=== PATIENT | female | born 1950 | race Asian ===

== ENCOUNTER → 2016-10-23 | Outpatient (CLI) | payer MEDICARE ==
[~2016-10-23] VITALS: Ht 152.4 cm; Wt 51.1 kg
[~2016-10-23] MED LIST: ADV250 IH; ASPI-556 PO; ATOR20TA86 PO; ETHA400T8 PO; ISOS30TA6 PO; LOSA50TA37 PO; METF850T2 PO; METO25 PO; NITR.4 SL; RIFA300 PO
[2016-10-23 12:32] VITALS: BP 171/82
== END | disposition home or self-care (01) ==
LOC: SRCNTR 12:10
PROVIDERS: ATTEND Internal Medicine
DX: I10 Essential (primary) hypertension (principal); E11.9 Type 2 diabetes mellitus without complications; A15.0 Tuberculosis of lung
CPT/HCPCS: G0463

== ENCOUNTER → 2016-11-20 | Outpatient (CLI) | payer BC, MEDICARE ==
[~2016-11-20] VITALS: Ht 152.4 cm; Wt 52.5 kg
[~2016-11-20] MED LIST changes: -ADV250 IH; -ISOS30TA6 PO
[2016-11-20 13:47] VITALS: BP 141/67
== END | disposition home or self-care (01) ==
LOC: SRCNTR 12:26
PROVIDERS: ATTEND Internal Medicine
DX: I10 Essential (primary) hypertension (principal); E11.9 Type 2 diabetes mellitus without complications; A15.0 Tuberculosis of lung; M10.9 Gout, unspecified
CPT/HCPCS: G0463